=== PATIENT | female | born 1990 | race Caucasian/White ===

== ENCOUNTER 2018-07-28 08:16 | Emergency (ER) | payer SELFPAY ==
[~2018-07-28] VITALS: Ht 139.7 cm; Wt 69.0 kg
[2018-07-28 09:29] VITALS: BP 128/84
== END 2018-07-28 09:30 | disposition home or self-care (01) ==
LOC: ER 08:16
DX: S46.812A Strain of other muscles, fascia and tendons at shoulder and upper arm level, left arm, initial encounter (principal); V49.49XA Driver injured in collision with other motor vehicles in traffic accident, initial encounter; Y93.89 Activity, other specified; Y92.410 Unspecified street and highway as the place of occurrence of the external cause
CPT/HCPCS: 81025; 99283